=== PATIENT | female | born 1935 | race Caucasian/White ===

== ENCOUNTER → 2018-06-27 06:28 | Outpatient (CLI) | payer MEDICARE, MEDICAID ==
[~2018-06-27] VITALS: Ht 162.6 cm; Wt 86.4 kg
--- NOTE | ~2018-06-27 | HEMODYNAMI ---
PATIENT:MARKO GOMEZ MEDICAL RECORD: [id number] : 37 LOCATION:D.CAT ADMISSION DATE: 06/27/18 Generatedon:06/27/201810:12 Patient name: MARKO GOMEZ Patient #: [id number] SSN: : 1935 Date of study: 06/27/2018 Page: Of Hemodynamic Procedure Report Patient Data Patient Demographics Procedure consent was obtained First Name: MARKO Gender: Female Last Name: JASON : 1935 [facility] Initial: ALEJANDRINA Age: 82 year(s) Patient #: [id number] Race: Unknown Additional ID: [id number] Contact details [address]: [address] [place] [address] DRIVE State: [place] City: [place] Zip code: [address] Admission Admission Data Admission Date: 06/27/2018 Admission Time: 6:28 Procedure Procedure Types Cath Procedure Diagnostic Procedure LHC LHC w/Coronaries Sedation Charges Moderate Sedation up to 15 minutes PCI Procedure Coronary Stent Coronary Stent Initial Procedure Description Procedure Date Procedure Date: 06/27/2018 Procedure Start Time: 9:30 Procedure End Time: 10:08 Procedure Staff Name Function Eduardo Fernandez MD Performing Physician Navdeep Baldwin RN Nurse Irena López RT Scrub Elisa Neal RT Monitor Procedure Data Cath Procedure Fluoroscopy Diagnostic fluoroscopy Total fluoroscopy Time: time: 11.4 min 11.4 min Diagnostic fluoroscopy Total fluoroscopy dose: dose: 2739 mGy 2739 mGy Contrast Material Contrast Material Type Amount (ml) Isovue 300 180 Entry Location Entry Primary Successful Side Size Upsize Upsize Entry Closure Larry ccessful Closure Location (Fr) 1 (Fr) 2 (Fr) Remarks Device Remarks Radial Right 6 Fr Mechanical artery Short Compression Estimated blood loss: 5 ml Diagnostic catheters Device Type Used For End Catheter Placement DIAGNOSTIC Norman 110cm 5 Multi-vessel Fr catheter ([id number]) Angiography Procedure Complications No complications Procedure Medications Medication Administration Route Dosage Oxygen etCO2 Nasal cannula 2 l/min Heparin Flush Bag added to field 2 bags (1000units/500ml NS) 0.9% NaCl I.V. 100 ml/hr Fentanyl I.V. 50 mcg Versed I.V. 1 mg Radial Cocktail added to field 1 syringe (Verapomil 2mg/Nitro 400mcg/Heparin 1500units) Radial Cocktail I.A. 1 syringe (Verapomil 2mg/Nitro 400mcg/Heparin 1500units) Heparin Bolus I.V. 8000 units Plavix P.O. 600 mg Hemodynamics Rest Heart Rate: 67 (bpm) Pressure Samples Time Site Value (mmHg) Purpose Heart Use Rate(bpm) 9:33 LV 107/8,21 Snapshot 61 Gradients Valve Time Site Site Mean SEP/DFP Peak To Heart Use 1 2 (mmHg) (sec/min) Peak Rate (mmHg) (bpm) Aortic 9:34 LV AO 68 Snapshots Pre Cath Intra NCS Post Cath Vital Signs Time Heart Resp SPO2 etCO2 NIBP (mmHg) Rhythm Pain Sedation Rate (ipm) (%) (mmHg) Status Level (bpm) 9:20:20 55 16 97 31.2 145/65(119) NSR 0 (11) 10(A) , No pain 9:24:34 52 17 100 32 107/55(85) NSR 0 (11) 10(A) , No pain 9:28:48 52 17 97 43.4 89/44(68) NSR 0 (11) 10(A) , No pain 9:32:52 61 17 99 37.3 109/55(85) NSR 0 (11) 9(A) , No pain 9:37:06 63 16 98 38.8 106/51(79) NSR 0 (11) 9(A) , No pain 9:41:18 64 17 100 38.8 113/53(82) NSR 0 (11) 9(A) , No pain 9:45:34 62 17 100 38.8 102/50(83) NSR 0 (11) 9(A) , No pain 9:49:44 66 17 100 38 108/56(85) NSR 0 (11) 9(A) , No pain 9:54:45 70 16 100 34.2 129/72(112) NSR 0 (11) 9(A) , No pain 9:58:57 73 17 97 32.7 144/81(114) NSR 0 (11) 9(A) , No pain 10:03:19 67 17 96 30.4 145/66(117) NSR 0 (11) 9(A) , No pain 10:07:41 66 17 97 30.4 140/68(112) NSR 0 (11) 10(A) , No pain 10:12:03 61 13 100 37.3 139/71(115) NSR 0 (11) 10(A) , No pain Medications Time Medication Route Dose Verified Delivered Reason Not es Effectiveness by by 9:28:34 Oxygen etCO2 2 l/min Eduardo Navdeep Per physician Nasal Jim Baldwin RN cannula 9:28:43 Heparin Flush added 2 bags Eduardo Navdeep used for Bag to Jim Baldwin RN procedure (1000units/500ml field NS) 9:28:52 0.9% NaCl I.V. 100 Eduardo Navdeep Per physician ml/hr Jim Baldwin RN 9:29:20 Fentanyl I.V. 50 mcg Eduardo Navdeep for sedation Jim Baldwni RN 9:29:27 Versed I.V. 1 mg Eduardo Navdeep for sedation Jim Baldwin RN 9:32:21 Radial Cocktail added 1 Eduardo Navdeep used for (Verapomil to syringe Jim Baldwin RN procedure 2mg/Nitro field 400mcg/Heparin 1500units) 9:32:27 Radial Cocktail I.A. 1 Eduardo Eduardo for (Verapomil syringe Jim Fernandez MD vasodilation 2mg/Nitro 400mcg/Heparin 1500units) 9:42:37 Heparin Bolus I.V. 8000 Eduardo Navdeep for units Jim Baldwin RN anticoagulation 10:08:33 Plavix P.O. 600 mg Eduardo Navdeep for Jim Baldwin RN antiplatelet therapy Procedure Log Time Note 7:51:51 Diagnostic Cath Status : Elective 8:53:19 Navdeep Baldwin RN sent for patient. Start room use. 9:03:20 Time tracking: Regular hours (M-F 7:00 - 5:00) 9:03:25 Plan of Care:Hemodynamics will remain stable., Cardiac rhythm will remain stable., Comfort level will be maintained., Respiratory function will remain adequate., Patient/ family verbilizes understanding of procedure., Procedure tolerated without complication., Recovers from procedure without complications.. 9:06:21 Patient received from Pre/Post Procedure Room to CCL 2 Alert and oriented. Tansferred to table in Supine position. 9:06:22 Warm blankets applied, and kenny hugger turned on for patient comfort. 9:06:22 Correct patient and procedure confirmed by team. 9:06:24 Signed procedure consent form obtained from patient. 9:06:25 ECG and BP/O2 sat monitors applied to patient. 9:14:23 Vital chart was started 9:18:27 Baseline sample Acquired. 9:20:11 Rhythm: sinus rhythm 9:20:12 Full Disclosure recording started 9:20:17 H&P Date Dictated: 06/27/2018 Within 30 days and on chart., H&P Addendum completed by physician on day of procedure. (MUST COMPLETE FOR ALL OUTPATIENTS). 9:20:19 Pre-procedure instructions explained to patient. 9:20:19 Pre-op teaching completed and patient verbalized understanding. 9:20:20 Family in waiting room. 9:20:24 Patient NPO since Midnight. 9:20:26 Is the patient allergic to Iodine/contrast media? No. 9:20:28 Was the patient premedicated? No 9:20:29 Is patient on blood thinner?No 9:20:31 Patient diabetic? No. 9:20:47 Previous problem with sedation/anesthesia? No ? 9:20:53 Snore? Yes 9:20:55 Sleep apnea? No 9:20:56 Deviated septum? No 9:20:57 Opens mouth fully? Yes 9:20:57 Sticks out tongue? Yes 9:20:59 Airway obstruction? No ? 9:21:07 Dentures? Yes in tight 9:21:34 Pre procedure: right dorsailis pedis pulse 1+ Palpable, but thready & weak; easily obliterated 9:21:36 Pre procedure: left dorsailis pedis pulse 1+ Palpable, but thready & weak; easily obliterated 9:21:38 Patient pain scale 0/10 ?. 9:21:44 IV patent on arrival in left forearm with 0.9% NaCl at O. 9:21:46 Lab results completed and on chart. 9:21:52 Right Radial & Right Groin area was prepped with chlora-prep and draped in sterile fashion 9:21:53 Alarms reviewed by Ivette N. 9::53 Sharps counted by scrub and verified by R.N. 9::54 Physician arrived 9::55 --------ALL STOP TIME OUT------ 9::55 Final Timeout: patient, procedure, and site verified with staff and physician. All members of the team are in agreement. 9::57 Right Radial & Right Groin site verified by team. 9::59 Physical assessment completed. ASA score P 2 - A patient with mild systemic disease as per Eduardo Fernandez MD. 9:22:48 Sedation plan: IV Moderate Sedation Medication:Versed, Fentanyl 9::57 Use device set Radial Dx or PCI 9:22:58 ACIST Syringe (24282) opened to sterile field. 9:22:59 Medline Cath Pack ([id number]) opened to sterile field. 9:22:59 Bag Decanter (2002S) opened to sterile field. 9:22:59 DIAGNOSTIC WIRE .035 260cm J wire (185237) opened to sterile field. 9:23:00 ACIST Hand Control (61365) opened to sterile field. 9:23:00 ACIST Manifold (01233) opened to sterile field. 9:23:01 Tegaderm 4 x 4 (1626W) opened to sterile field. 9:23:02 MBrace Wrist Support ([id number]) opened to sterile field. 9:23:03 SHEATH 6Fr Prelude Radial ([id number]) opened to sterile field. 9:28:05 Zero performed for pressure channel P1 9:28:27 Procedure started. 9:28:34 Oxygen 2 l/min etCO2 Nasal cannula was administered by Navdeep Baldwin RN; Per physician; 9:28:43 Heparin Flush Bag (1000units/500ml NS) 2 bags added to field was administered by Navdeep Baldwin RN; used for procedure; 9::52 0.9% NaCl 100 ml/hr I.V. was administered by Navdeep Baldwin RN; Per physician; 9:29:20 Fentanyl 50 mcg I.V. was administered by Navdeep Baldwin RN; for sedation; :29:27 Versed 1 mg I.V. was administered by Navdeep Baldwin RN; for sedation; 9:30:53 Local anesthetic to right radial artery with Lidocaine 2% by Eduardo Fernandez MD.INITIAL ACCESS ONLY 9:31:38 A 6 Fr Short sheath was inserted into the Right Radial artery 9:32:05 A DIAGNOSTIC Norman 110cm 5 Fr catheter (565299) was advanced over the wire and used for Multi-vessel Angiography. 9:32:21 Radial Cocktail (Verapomil 2mg/Nitro 400mcg/Heparin 1500units) 1 syringe added to field was administered by Navdeep Baldwin RN; used for procedure; 9:32:27 Radial Cocktail (Verapomil 2mg/Nitro 400mcg/Heparin 1500units) 1 syringe I.A. was administered by Eduardo Fernandez MD; for vasodilation; 9:33:23 LV hemodynamics recorded. 9:33:24 LV gram done using YEBOAH 9:33:27 Injector settings: Ml/sec: 5, Volume: 15, 9:34:02 EF : 60 % 9:34:31 LCA angiography performed. 9:35:18 Injector settings: Ml/sec: 3, Volume: 6, 9:38:35 RCA angiography performed. 9:38:37 Injector settings: Ml/sec: 3, Volume: 6, 9:38:52 Catheter removed. 9:39:05 Proceeding to intervention. 9:39:28 INFLATOR Merit BasixCompak (OR7312) opened to sterile field. 9:39:29 BMW 300cm [place] 2 J wire ([id number]) opened to sterile field. 9:39:30 TUBING High Pressure Extension Tubing (Jim) ([id number]) opened to sterile field. 9:39:40 GUIDE 6FR XBLAD 3.5 catheter (96534859) opened to sterile field. 9:41:24 6 Fr xblad 3.5 guide catheter was inserted over the wire 9:41:31 bmw wire advanced. 9:42:37 Heparin Bolus 8000 units I.V. was administered by Navdeep Baldwin RN; for anticoagulation; 9:46:39 Wire advanced across lesion. 9:48:50 Inflate balloon Inflation number: 1 A EUPHORA 2.5 x 15 Balloon ([id number]) was prepped and advanced across the Mid LAD, then inflated to 12 KRISTEN for 0:10 (min:sec). 9:49:31 Inflation number: 2 The EUPHORA 2.5 x 15 Balloon ([id number]) was reinflated across the Mid LAD, to 16 KRISTEN for 0:10 (min:sec). 9:51:12 CHOICE PT Extra Support J 300cm guide wire ([id number]) opened to sterile field. 9:52:54 bmw wire removed; choice pt extrasupport wire advanced across lesion 9:55:53 The EMERGE OTW 2.0 x 20 balloon ([id number]) was advanced and then removed because in body, not inflated 9:59:24 Place stent Inflation Number: 3 A INTEGRITY OTW 2.75 X 22 stent ([id number]) was prepped and advanced across the Mid LAD. The stent was deployed at 14 KRISTEN for 0:10 (min:sec). 10:06:35 Stent catheter was removed intact over wire. 10:06:46 Place stent Inflation Number: 4 A INTEGRITY OTW 2.5 X 12 stent ([id number]) was prepped and advanced across the Mid LAD. The stent was deployed at 16 KRISTEN for 0:10 (min:sec). 10:06:50 Stent catheter was removed intact over wire. 10:06:51 Wire removed. 10:06:51 Guide catheter removed. 10:06:55 TR BAND Standard ([id number]) opened to sterile field. 10:07:04 Sheath removed intact; hemostasis achieved with Mechanical Compression to the Right Radial artery. 10:07:06 Procedure ended.(Physican Out) 10:07:53 Fluoroscopy time 11.40 minutes. 10:08:00 Fluoroscopy dose: 2739 mGy 10:08:00 Flurop Dose total: 2739 10:08:08 Contrast amount:Isovue 300 180ml. 10:08:09 Sharps counted by scrub and verified by R.N. 10:08:11 Insertion/operative site no bleeding no hematoma. 10:08:14 TR band inflated with 10cc of air. 10:08:18 Post right radial artery:stable 10:08:19 Post Procedure Pulses reassessed and unchanged 10:08:22 Post procedure rhythm: unchanged. 10:08:24 Estimated blood loss: 5 ml 10:08:26 Post procedure instruction explained to patient.Patient verbalizes understanding. 10:08:26 Patient needs reinforcement of post procedure teaching. 10:08:33 Plavix 600 mg P.O. was administered by Navdeep Baldwin RN; for antiplatelet therapy; 10:08:40 Procedure type changed to Cath procedure, Diagnostic procedure, LHC, LHC w/Coronaries, Sedation Charges, Moderate Sedation up to 15 minutes, PCI procedure, Coronary Stent, Coronary Stent Initial 10:08:41 Procedure and supply charges have been captured, reviewed, submitted and are correct. 10:08:46 Procedure Complication : No complications 10:08:48 Vital chart was stopped 10:08:49 See physician's report for complete and final results. 10:08:54 Report given to Pre/Post Procedure Room. 10:08:56 Patient transfered to Pre/Post Procedure Room with Stretcher. 10:08:59 Procedure ended. 10:08:59 Full Disclosure recording stopped 10:09:34 ACC-PCI Only Patient was given prescriptions, or instructed by Eduardo Fernandez MD to start/continue the following medications upon discharge: Plavix 10:09:35 End room use (Document Last) Intervention Summary Intervention Notes Time ActionType Lesion and Equipment Action# Pressure Duration Attributes Used 9:48:50 Inflate Mid LAD EUPHORA 2.5 1 12 00:10 balloon x 15 Balloon ([id number]) 9:49:31 Reinflate Mid LAD EUPHORA 2.5 2 16 00:10 balloon x 15 Balloon ([id number]) 9:55:53 Discard EMERGE OTW Balloon 2.0 x 20 balloon ([id number]) 9:59:24 Place stent Mid LAD INTEGRITY 3 14 00:10 OTW 2.75 X 22 stent ([id number]) 10:06:46 Place stent Mid LAD INTEGRITY 4 16 00:10 OTW 2.5 X 12 stent ([id number]) Device Usage Item Name Manufacture Quantity Catalog Number Hospital Part Current Minimal Lot# / Charge Number Stock Stock Serial# Code ACIST Syringe Acist 1 91080 881302 618580 379914 20 (91101) [employer] Medline Cath Medline 1 [id number] 701231 90268 929820 5 Pack ([id number]) Bag Decanter Microtek 1 022498 60547 990149 5 () Medical Inc. DIAGNOSTIC WIRE St Jimmy 1 129051 594636 876749 990833 30 .035 260cm J wire (375275) ACIST Hand Acist 1 97379 223900 922629 510371 5 Control (78731) Medical Systems Inc ACIST Manifold Acist 1 12980 066998 128800 911269 5 (77088) Medical Systems Inc Tegaderm 4 x 4 3M 1 1626W 229514 887295 232206 5 (1626W) MBrace Wrist Advanced 1 140-0250-00 697625 53252 425259 5 Support Vascular (983821392) Dynamics SHEATH 6Fr Merit 1 [id number] 250713 340659 200960 5 Prelude Radial Medical ([id number]) DIAGNOSTIC Terumo 1 40-5693 646427 676161 476601 5 Norman 110cm 5 Fr catheter (814003) INFLATOR Merit Merit 1 BS0881 895566 174864 954497 15 BasixCompak Medical (WG0359) BMW 300cm Duran 1 [id number] 539017 843434 172842 5 [place] 2 J Vascular wire (6952953O) TUBING High Merit 1 [id number] 762309 25634 417259 10 Pressure Medical Extension Tubing (Fernandez) (AR6734Y) GUIDE 6FR XBLAD Cardinal 1 [id number] 895214 073651 906050 10 3.5 catheter Health (19859678) EUPHORA 2.5 x Medtronic 1 [id number] 737661 005465 606950 5 [id number] 15 Balloon ([id number]) CHOICE PT Extra [place] 1 [id number] 769392 698858 022912 5 Support J 300cm Scientific guide wire (1265793S3) EMERGE OTW 2.0 [place] 1 [id number] 154073 363840 301877 5 [id number] x 20 balloon Scientific ([id number]) INTEGRITY OTW Medtronic 1 [id number] 321505 296577 1 [id number] 2.75 X 22 stent ([id number]) INTEGRITY OTW Medtronic 1 [id number] 888941 233356 3 [id number] 2.5 X 12 stent ([id number]) TR BAND Terumo 1 [id number] 166411 520872 329975 40 Standard ([id number]) Signature Audit [place] Stage Time Signature Unsigned Intra-Procedure 06/27/2018 Irnea López 10:12:46 AM RT(R) Signatures Monitor : Elisa Neal Signature : RT Date : Time : [place] [address] [place] [address]
[~2018-06-27 06:28] MED LIST: ASPIRIN 81 MG E81 MG PO; BAYER CHEWABLE81 MG PO; BISAC-EVAC10 MG/SUPP RC; BOUDREAUXS113 GM TP; CELEXA10 MG PO; CELEXA20 MG PO; COUMADIN2.5 MG PO; COUMADIN5 MG PO; GLUCOSAMINE & C1 CAP PO; IMODIUM2 MG PO; KLOR-CON M2020 MEQ PO; LASIX40 MG PO; LEVOTHROID175 MCG PO; MAG-OXIDE400 MG PO; MIRALAX17 GM PO; MULTI-DAY VITAM1 TAB PO; NORCO 10/325 TA1 TA1 PO; OXYCONTIN20 MG PO; PERCOCET 10/3251 TA1 PO; PHENERGAN6.25 MG/5; PLAVIX75 MG PO; PROAIR HFA8.5 GM INH; QUESTRAN PACK4 G/PKT PO; RELAFEN500 MG PO; RELAFEN750 MG PO; SENOKOT-S TABLE1 TAB PO; SYNTHROID150 MCG PO; TYLENOL 325 MG325 MG PO; VENTOLIN HFA18 GM INH; VITAMIN D2000 UNIT PO; ZEBETA10 MG PO; ZOCOR20 MG PO
[2018-06-27 06:59] VITALS: BP 175/80; Ht 162.6 cm; Wt 86.4 kg
[2018-06-27 08:04] LABS: BASOPHILS 0.2 % (0-2); EOSINOPHILS 2.9 % (0-7); HEMATOCRIT 39.5 % (36.0-48.0); HEMOGLOBIN 12.7 g/dL (12-16); IMMATURE GRANULOCYTES 0.1 % (0-5); LYMPHOCYTES 20.4 % (15-50); MCH 32.2 pg (26.0-34.0); MCHC 32.2 g/dL (31.0-37.0); MEAN PLATELET VOLUME 10.2 fL (7.4-10.4); MONOCYTES 8.3 % (2-11); NEUTROPHILS 68.1 % (40-80); PLATELET COUNT 268 10x3/uL (130-400); RBC 3.95 10x6/uL (4.00-5.40); WBC 9.2 10x3/uL (4.8-10.8)
[2018-06-27 08:10] LABS: ANION GAP 13.1 mmol/L (8-16); CALCIUM 8.4 mg/dL (8.5-10.1); CARBON DIOXIDE 28.9 mmol/L (21.0-32.0); CREATININE - SERUM 1.1 mg/dL (0.6-1.3)
== END | disposition home or self-care (01) ==
LOC: D.CATH 06:28
PROVIDERS: Internal Medicine Cardiovascular Disease
DX: I25.110 Atherosclerotic heart disease of native coronary artery with unstable angina pectoris (principal); R94.39 Abnormal result of other cardiovascular function study